=== PATIENT | female | born 1950 | race Caucasian/White ===

== ENCOUNTER 2019-02-01 01:29 | Emergency (ER) | payer MEDICARE, MEDICAID ==
[~2019-02-01] VITALS: Ht 165.1 cm; Wt 106.0 kg
[~2019-02-01 01:29] MED LIST: ANUHCC PR; DOCU-150 PO; IBUP-2028 PO; LISI1TAB11 PO; PIRO20CA; TRAM50TA3; XANAX
[2019-02-01 02:27] LABS: CLARITY URINE CLOUDY (CLEAR); COLOR URINE ORANGE (YELLOW); KETONES URINE NEGATIVE (NEGATIVE); LEUKOCYTE ESTERASE URINE 1+ (NEGATIVE); NITRITE URINE NEGATIVE (NEGATIVE); OCCULT BLOOD URINE 3+ (NEGATIVE); PH URINE 5.5 (4.5-8.0); PROTEIN URINE NEGATIVE (NEGATIVE); SPECIFIC GRAVITY URINE 1.022 (1.005-1.030)
[2019-02-01 04:24] LABS: BASOPHILS % 0.7 % (0.0-2.0); EOSINOPHILS % 1.7 % (0.0-5.0); HEMATOCRIT. 42.4 % (36.0-48.0); HEMOGLOBIN. 14.2 g/dL (12.0-16.0); LYMPHOCYTES % 23.3 % (20.0-50.0); MEAN CORPUSCULAR VOLUME 86.7 fL (81.0-99.0); MONOCYTES % 7.2 % (2.0-8.0); NEUTROPHILS % 67.1 % (40.0-76.0); PLATELET 216 x1000/uL (130-400); RED BLOOD CELL COUNT 4.89 mill/uL (4.2-5.4); RED CELL DISTRIBUTION WIDTH 13.6 % (11.6-14.6)
[2019-02-01 04:31] LABS: CHLORIDE 104 mEq/L (98-107)
[2019-02-01 04:32] LABS: PROTHROMBIN TIME 10.5 sec (9.6-11.0)
[2019-02-01 06:52] VITALS: BP 155/70
== END 2019-02-01 06:57 | disposition home or self-care (01) ==
LOC: ER 01:29
DX: N93.9 Abnormal uterine and vaginal bleeding, unspecified (principal); R03.0 Elevated blood-pressure reading, without diagnosis of hypertension
CPT/HCPCS: 36415; 76830; 76856; 99284

== ENCOUNTER 2019-06-04 00:28 | Emergency (ER) | payer MEDICARE, MEDICAID ==
[~2019-06-04] VITALS: Ht 165.1 cm; Wt 102.0 kg
[2019-06-04 05:32] LABS: BASOPHILS % 0.4 % (0.0-2.0); EOSINOPHILS % 0.5 % (0.0-5.0); HEMOGLOBIN. 14.4 g/dL (12.0-16.0); LYMPHOCYTES % 12.5 % (20.0-50.0); MEAN CORPUSCULAR VOLUME 86.6 fL (81.0-99.0); MEAN PLATELET VOLUME 10.7 fl (7.4-10.4); MONOCYTES % 6.5 % (2.0-8.0); NEUTROPHILS % 80.1 % (40.0-76.0); PLATELET 212 x1000/uL (130-400); RED BLOOD CELL COUNT 4.97 mill/uL (4.2-5.4); RED CELL DISTRIBUTION WIDTH 15.2 % (11.6-14.6)
[2019-06-04 06:13] VITALS: BP 141/59
== END 2019-06-04 06:44 | disposition home or self-care (01) ==
LOC: ER 00:58
DX: N93.9 Abnormal uterine and vaginal bleeding, unspecified (principal); I10 Essential (primary) hypertension
CPT/HCPCS: 36415; 99283

== ENCOUNTER 2021-07-07 14:47 | Emergency (ER) | payer MEDICARE, MEDICAID ==
[~2021-07-07] VITALS: Ht 154.9 cm; Wt 97.0 kg
[2021-07-07] MEDS ORDERED: VITAMIN D2 (15:14)
[2021-07-07] MEDS ORDERED: NAPR-681 PO (15:14)
[2021-07-07 17:28] LABS: BASOPHILS % 0.4 % (0.0-2.0); EOSINOPHILS % 0.9 % (0.0-5.0); HEMATOCRIT. 37.7 % (36.0-48.0); HEMOGLOBIN. 13.2 g/dL (12.0-16.0); LYMPHOCYTES % 11.1 % (20.0-50.0); MEAN CORPUSCULAR HEMOGLOBIN 31.9 pg (28.0-32.0); MEAN CORPUSCULAR VOLUME 91.2 fL (81.0-99.0); MEAN PLATELET VOLUME 9.4 fl (7.4-10.4); MONOCYTES % 5.1 % (2.0-8.0); NEUTROPHILS % 82.5 % (40.0-76.0); PLATELET 189 x1000/uL (130-400); RED BLOOD CELL COUNT 4.13 mill/uL (4.2-5.4); RED CELL DISTRIBUTION WIDTH 13.9 % (11.6-14.6)
[2021-07-07 17:35] LABS: CHLORIDE 106 mEq/L (98-107)
[2021-07-07 19:00] LABS: CLARITY URINE CLEAR (CLEAR); COLOR URINE YELLOW (YELLOW); KETONES URINE NEGATIVE (NEGATIVE); LEUKOCYTE ESTERASE URINE NEGATIVE (NEGATIVE); NITRITE URINE NEGATIVE (NEGATIVE); OCCULT BLOOD URINE TRACE (NEGATIVE); PROTEIN URINE NEGATIVE (NEGATIVE); SPECIFIC GRAVITY URINE 1.018 (1.005-1.030)
[2021-07-07] MEDS ORDERED: APIX5TAB MT (19:50)
[2021-07-07 20:40] VITALS: BP 103/54
== END 2021-07-07 20:40 | disposition home or self-care (01) ==
LOC: ER 14:47
DX: I48.20 Chronic atrial fibrillation, unspecified (principal); I10 Essential (primary) hypertension; Z91.14 Patient's other noncompliance with medication regimen; Z79.01 Long term (current) use of anticoagulants
CPT/HCPCS: 36415; 71045; 80053; 81003; 83880; 84484; 85025; 93005; 99285

== ENCOUNTER 2022-03-18 13:03 | Emergency (ER) | payer MEDICARE, MEDICAID ==
[~2022-03-18] VITALS: Ht 167.6 cm; Wt 99.0 kg
[~2022-03-18 13:03] MED LIST changes: +APIX5TAB MT; +NAPR-681 PO; +VITAMIN D2
[2022-03-18] MEDS ORDERED: MAGNESIUM/ALUMINUM HYDROXIDE/SIMETHICONE 30ML UDC PO STA (13:39)
[2022-03-18] MEDS ORDERED: ONDANSETRON HCL 4MG/2ML INJ IV STA (13:39)
[2022-03-18 14:41] LABS: BASOPHILS % 0.3 % (0.0-2.0); EOSINOPHILS % 1.5 % (0.0-5.0); HEMATOCRIT. 38.5 % (36.0-48.0); HEMOGLOBIN. 12.9 g/dL (12.0-16.0); LYMPHOCYTES % 14.5 % (20.0-50.0); MEAN CORPUSCULAR HEMOGLOBIN 30.6 pg (28.0-32.0); MEAN CORPUSCULAR VOLUME 90.9 fL (81.0-99.0); MEAN PLATELET VOLUME 9.1 fl (7.4-10.4); MONOCYTES % 6.5 % (2.0-8.0); NEUTROPHILS % 77.2 % (40.0-76.0); PLATELET 174 x1000/uL (130-400); RED BLOOD CELL COUNT 4.23 mill/uL (4.2-5.4); RED CELL DISTRIBUTION WIDTH 13.4 % (11.6-14.6)
[2022-03-18 14:51] LABS: CHLORIDE 105 mEq/L (98-107)
[2022-03-18 14:59] LABS: ETHANOL BLOOD < 10 mg/dL
[2022-03-18] MEDS ORDERED: IOHEXOL-350 100 ML BOTTLE ONE (15:28)
[2022-03-18] MEDS ORDERED: ONDA4TAB5 MT (16:03)
[2022-03-18] MEDS ORDERED: MECL-159 MT (16:03)
[2022-03-18] MEDS ORDERED: MAGNESIUM/ALUMINUM HYDROXIDE/SIMETHICONE 30ML UDC PO NR (16:15)
[2022-03-18] MEDS ORDERED: ONDANSETRON HCL 4MG/2ML INJ IV NR (16:15)
[2022-03-18] MEDS ORDERED: MECLIZINE 12.5MG TABLET PO NR (17:00)
[2022-03-18 17:24] VITALS: BP 138/82
== END 2022-03-18 17:25 | disposition home or self-care (01) ==
LOC: ER 13:03
DX: R42 Dizziness and giddiness (principal); I10 Essential (primary) hypertension; I48.91 Unspecified atrial fibrillation; I35.1 Nonrheumatic aortic (valve) insufficiency; Z79.899 Other long term (current) drug therapy
CPT/HCPCS: 36415; 70496; 70498; 71045; 80053; 80320; 83690; 83880; 84484; 85025; 93005; 96374; 99285; J2405; Q9967; J8597; G0480

== ENCOUNTER 2022-04-09 01:00 | Emergency (ER) | payer MEDICARE, MEDICAID ==
[~2022-04-09] VITALS: Ht 165.1 cm; Wt 96.3 kg
[~2022-04-09 01:00] MED LIST changes: +MECL-159 MT; +ONDA4TAB5 MT
[2022-04-09] MEDS ORDERED: ASPIRIN 81MG TABLET PO ONE (01:45)
[2022-04-09 03:10] LABS: BASOPHILS % 0.2 % (0.0-2.0); EOSINOPHILS % 1.8 % (0.0-5.0); HEMATOCRIT. 37.1 % (36.0-48.0); HEMOGLOBIN. 12.2 g/dL (12.0-16.0); MEAN CORPUSCULAR HEMOGLOBIN 30.7 pg (28.0-32.0); MEAN CORPUSCULAR VOLUME 93.3 fL (81.0-99.0); MEAN PLATELET VOLUME 9.4 fl (7.4-10.4); MONOCYTES % 5.4 % (2.0-8.0); NEUTROPHILS % 80.6 % (40.0-76.0); PLATELET 173 x1000/uL (130-400); RED BLOOD CELL COUNT 3.98 mill/uL (4.2-5.4); RED CELL DISTRIBUTION WIDTH 13.7 % (11.6-14.6)
[2022-04-09 03:15] LABS: CHLORIDE 106 mEq/L (98-107)
[2022-04-09 04:30] VITALS: BP 142/84
== END 2022-04-09 05:07 | disposition home or self-care (01) ==
LOC: ER 01:00
DX: R55 Syncope and collapse (principal); R42 Dizziness and giddiness; I48.91 Unspecified atrial fibrillation; F41.9 Anxiety disorder, unspecified; I10 Essential (primary) hypertension; Z79.899 Other long term (current) drug therapy
CPT/HCPCS: 36415; 71045; 80053; 83880; 84484; 85025; 93005; 99285

== ENCOUNTER 2022-05-07 15:45 | Emergency (ER) | payer MEDICARE, MEDICAID ==
[~2022-05-07] VITALS: Ht 165.1 cm; Wt 95.0 kg
[2022-05-07 15:49] VITALS: BP 99/72
[2022-05-07 22:58] LABS: BASOPHILS % 0.5 % (0.0-2.0); EOSINOPHILS % 2.1 % (0.0-5.0); HEMATOCRIT. 35.2 % (36.0-48.0); HEMOGLOBIN. 11.8 g/dL (12.0-16.0); LYMPHOCYTES % 14.9 % (20.0-50.0); MEAN CORPUSCULAR HEMOGLOBIN 30.5 pg (28.0-32.0); MEAN CORPUSCULAR VOLUME 91.3 fL (81.0-99.0); MEAN PLATELET VOLUME 8.2 fl (7.4-10.4); MONOCYTES % 8.2 % (2.0-8.0); NEUTROPHILS % 74.3 % (40.0-76.0); PLATELET 172 x1000/uL (130-400); RED BLOOD CELL COUNT 3.86 mill/uL (4.2-5.4); RED CELL DISTRIBUTION WIDTH 13.7 % (11.6-14.6)
[2022-05-07 23:01] LABS: CHLORIDE 105 mEq/L (98-107)
[2022-05-08] MEDS ORDERED: FURO-151 MT (02:11)
== END 2022-05-08 02:37 | disposition home or self-care (01) ==
LOC: ER 15:45
DX: I11.0 Hypertensive heart disease with heart failure (principal); I50.9 Heart failure, unspecified; I49.8 Other specified cardiac arrhythmias; I48.91 Unspecified atrial fibrillation; Z79.899 Other long term (current) drug therapy
CPT/HCPCS: 36415; 71045; 80053; 83880; 84484; 85025; 93005; 99285